=== PATIENT | female | born 1980 | race Caucasian/White ===

== ENCOUNTER 2025-01-07 11:50 | Emergency (ER) | payer SELFPAY ==
[~2025-01-07] VITALS: Ht 172.7 cm; Wt 63.6 kg
--- NOTE | 2025-01-07 12:02 | ED.PDOC ---
HPI (NEURO) HPI Comments This is a 44 year old female GEORGINA presenting to the ED with chief complaint of seizure. Patient reports that she has been without her Keppra for a week and after being actively arrested for shoplifting today, she started to experience a seizure. EMS relays that the seizure lasted about 4-5 minutes. Patient denies any further complaints at this time. paramedics denied any postictal state. pt reports this is her typical seizure and she normally does not have seizures, nless she stops taking her keppra. she denies any symptoms now Chief Complaint: Seizure Time Seen by MD: 11:59 Reviewed Notes: Nurses Notes, Management Associate Notes, Medications, Allergies Information Source: Patient, Emergency Med Personnel Mode of Arrival: EMS Severity: Mild Dizziness/Weakness Severity: Does not affect activitie Headache Severity: None Timing: Hours Duration: Minutes Prehospital treatment: None Seizure Quality: Tonic-clonic Seizure Location: Generalized Onset: Other (being arrested) Circumstances: Spontaneous History of: Seizure Disorder Past Medical History PAST MEDICAL HISTORY: Seizures Surgical History: Denies all surgeries ELECTROMEDICAL EQUIPMENT TECHNICIAN History: No Pertinent ELECTROMEDICAL EQUIPMENT TECHNICIAN History Family History Family History: Reviewed,noncontributory to illness Social History Smoker: Non-Smoker Alcohol: Denies ETOH Use Drugs: Denies Drug Use Lives In: Home Constitutional: denies: chills, diaphoresis, fatigue, fever, malaise, sweats, weakness, others EENTM: denies: blurred vision, double vision, ear bleeding, ear discharge, ear drainage, ear pain, ear ringing, eye pain, eye redness, hearing loss, mouth pain, mouth swelling, nasal discharge, nose bleeding, nose congestion, nose pain, photophobia, tearing, throat pain, throat swelling, voice changes, others Respiratory: denies: cough, hemoptysis, orthopnea, SOB at rest, shortness of breath, SOB with excertion, stridor, wheezing, others Cardiovascular: denies: chest pain, dizzy spells, diaphoresis, Dyspnea on exertion, edema, irregular heart beat, left arm pain, lightheadedness, palpitations, PND, syncope, others Gastrointestinal: denies: abdomen distended, abdominal pain, blood streaked bowels, constipated, diarrhea, dysphagia, difficulty swallowing, hematemesis, melena, nausea, poor appetite, poor fluid intake, rectal bleeding, rectal pain, vomiting, others Genitourinary: denies: abnormal vagina bleeding, burning, dyspareunia, dysuria, flank pain, frequency, hematuria, incontinence, pain, , vagina disch arge, urgency, others Neurological: reports: seizure; denies: dizziness, fainting, headache, left sided numbness, left sided weakness, numbness, paresthesia, pre-existing deficit, right sided numbness, right sided weakness, speech problems, tingling, tremors, weakness, others Musculoskeletal: denies: back pain, gout, joint pain, joint swelling, muscle pain, muscle stiffness, neck pain, others Integumetry: denies: bruises, change in color, change in hair/nails, dryness, laceration, lesions, lumps, rash, wounds, others Allergic/Immunocompromised: denies: Difficulty Healing, Frequent Infections, Hives, Itching, others Hematologic/Lymphatic: denies: anemia, blood clots, easy bleeding, easy bruising, swollen glands, others Endocrine: denies: excessive hunger, excessive sweating, excessive thirst, excessive urination, flushing, intolerance to cold, intolerance to heat, unexplained weight gain, unexplained weight loss, others Psychiatric: denies: anxiety, bipolar disorder, depression, hopeless, panic disorder, schizophrenia, sleepless, suicidal, others All Other Systems: Reviewed and Negative Physical Exam General Appearance: No Apparent Distress, Normal HEENT: Normal ENT Inspection, Pharynx Normal, TMs Normal, Other (No tongue laceration) Neck: Full Range of Motion, Non-Tender, Normal, Normal Inspection Respiratory: Chest Non-Tender, Lungs Clear, No Accessory Muscle Use, No Respiratory Distress, Normal Breath Sounds Cardiovascular: No Edema, No JVD, No Murmur, No Gallop, Normal Peripheral Pulses, Regular Rate/Rhythm Breast Exam: Deferred Gastrointestinal: No Organomegaly, Non Tender, No Pulsatile Mass, Normal Bowel Sounds, Soft Genitalia: Other (No urinary incontinence) Pelvic: Deferred Rectal: Deferred Extremities: No calf tenderness, Normal capillary refill, Normal inspection, Normal range of motion, Non-tender, No pedal edema Musculoskeletal : Apperance: Normal Neurologic: Alert, 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 Was a procedure done?: No Differential Diagnosis (SZ) Seizure: Hyperventilation, Psychogenic Seizure, Anticonvulsant Withdrawl, Drug Ingestion, Hypocalcemia, Hypoglycemia, Hyponatremia, Hypoxemia, Syncope, Epilepsy-Break Through, Epilepsy-Status General Weakness: N/A Headache: N/A Time of 1ST Reevaluation: 12:00 Reevaluation 1ST: Resolved Patient Education/Counseling: Diagnosis, Treatment, Prognosis, Need For Follow Up Family Education/Counseling: No Family Present Additional Information Reviewed patient's previous visit(s): None The following tests were ordered, and results were reviewed by me: None Additional information was gathered from interviewing the following independent historian: EMS I reviewed and agreed with the following test results read by other provider: none I discussed treatments and results with medical personnel and: Patient Comprehensive systems review obtained and negative except for what is stated in the HPI. Departure 1 Departure Time of Disposition: 12:13 Impression: Primary Impression: Seizure Additional Impression: Noncompliance with medications Disposition: HOME / SELF CARE / HOMELESS Condition: Good e-Prescriptions Levetiracetam (KEPPRA TABLET) 500 Mg Tb 500 MG PO TID for 30 Days, #90 TAB Prov: EZE FLORES MD 01/07/25 Levetiracetam (Keppra) 250 Mg Tab 250 MG PO TID for 30 Days, #90 TAB Prov: EZE FLORES MD 01/07/25 Discharged With: Self Critical Care Note Critical Care Time?: No Stability Stability form required: No Heart Score Heart Score: Heart Score Response (Comments) Value History N/A 0 EKG N/A 0 Age N/A 0 Risk Factors N/A 0 Troponin N/A 0 Total 0 I personally scribed for EZE FLORES MD ([email or web address]) on 01/07/25 at 12:02. Electronically submitted by Aryan Palmer ([email or web address]). EZE FLORES MD Jan 07, 2025 12:02
[2025-01-07] MEDS ORDERED: KEP500T PO (12:16)
[2025-01-07] MEDS ORDERED: LEVE250T18 PO (12:16)
[2025-01-07 12:27] VITALS: BP 122/83; PULSE 102; RESP 18; TEMP 98.3; O2SAT 100
== END 2025-01-07 12:32 | disposition home or self-care (01) ==
LOC: ER 11:50
DX: G40.909 Epilepsy, unspecified, not intractable, without status epilepticus (principal); Z91.148 Patient's other noncompliance with medication regimen for other reason